=== PATIENT | female | born 1950 | race Caucasian/White ===

== ENCOUNTER 2023-02-10 08:31 | Outpatient (CLI) | payer OTHER ==
[2023-02-10] MEDS ORDERED: Iopamidol 370 76% 100 ML VIAL ONE (09:17)
== END 2023-02-10 08:32 | disposition home or self-care (01) ==
LOC: CT 08:31
PROVIDERS: ATTEND Obstetrics & Gynecology Gynecologic Oncology
DX: C54.1 Malignant neoplasm of endometrium (principal)
CPT/HCPCS: 71260; 74177; 82565; Q9967

== ENCOUNTER 2023-08-10 10:56 | Outpatient (CLI) | payer OTHER | END 2023-08-10 10:57 | disposition home or self-care (01) | LOC: BICMAMMO 10:56 | PROVIDERS: ATTEND Family Medicine | DX: Z12.31 Encounter for screening mammogram for malignant neoplasm of breast (principal) | CPT/HCPCS: 77063; 77067 ==

== ENCOUNTER 2024-08-23 08:22 | Outpatient (CLI) | payer OTHER | END 2024-08-23 08:23 | disposition home or self-care (01) | LOC: BICMAMMO 08:22 | PROVIDERS: ATTEND Family Medicine | DX: M81.6 Localized osteoporosis [Lequesne] (principal); M85.89 Other specified disorders of bone density and structure, multiple sites | CPT/HCPCS: 77080 ==

== ENCOUNTER 2025-07-18 13:19 | Outpatient (CLI) | payer OTHER | END 2025-07-18 13:20 | disposition home or self-care (01) | LOC: BICRAD 13:19 | PROVIDERS: ATTEND Family Medicine | DX: R05.9 Cough, unspecified (principal) | CPT/HCPCS: 71046 ==